=== PATIENT | female | born 1930 | race Caucasian/White ===

== ENCOUNTER 2019-10-26 16:28 | Emergency (ER) | payer MEDICARE ==
[~2019-10-26] VITALS: Ht 160 cm; Wt 54.4 kg
[~2019-10-26 16:28] MED LIST: AMARYL4 MG PO; AMOXIL 875 MG875 M1 PO; ASPIRIN81 M2 PO; BENICAR40 MG PO; BLOOD PRESSURE MED; CRESTOR20 MG PO; GLUCOPHAGE XR500 MG PO; HYDROCHLOROTHIA25 M2 PO; IBUPROFEN 800800 M1 PO; LEVOTHROID88 MCG PO; MACROBID 100 M100 M1 PO; MOBIC15 MG PO; PROTONIX 20 MG20 M1 PO; SYNTHROID88 MCG PO; TYLENOL325 MG PO
[2019-10-26 16:54] LABS: URINE BILIRUBIN NEGATIVE (Negative); URINE BLOOD TRACE (Negative); URINE CLARITY CLEAR; URINE COLOR YELLOW; URINE GLUCOSE-RANDOM NEGATIVE (Negative); URINE KETONES TRACE (Negative); URINE NITRITE-REFLEX NEGATIVE (Negative); URINE PROTEIN NEGATIVE (Negative); URINE UROBILINOGEN 0.2 E.U./dl (0.2-1.0)
[2019-10-26 16:55] LABS: ABSOLUTE BASOPHILS 0.1 thou/uL (0.0-0.2); ABSOLUTE EOSINOPHILS 0.2 thou/uL (0.0-0.7); ABSOLUTE LYMPHOCYTES 1.3 thou/uL (0.8-5.3); ABSOLUTE MONOCYTES 0.4 thou/uL (0.0-1.2); ABSOLUTE NEUTROPHILS 2.9 thou/uL (1.6-8.1); BASOPHILS 1.5 %; EOSINOPHILS 4.2 %; HEMATOCRIT 36.8 % (37.0-47.0); HEMOGLOBIN 12.6 gm/dL (12.0-15.0); LYMPHOCYTES 26.4 %; MCH 30.4 pg (26.0-34.0); MCHC 34.2 g/dL (28.0-37.0); MCV 89.1 fL (80.0-100.0); MONOCYTES 8.4 %; MPV 7.2 fl. (7.2-11.1); NUCLEATED RBCS 0 /100WBC; PLATELET COUNT* 304 thou/uL (150-400); POLYS 59.5 %; RBC 4.13 mil/uL (4.20-5.00); RDW-CV 13.5 % (10.5-14.5); WBC 4.9 thou/uL (4.0-11.0)
[2019-10-26 16:56] LABS: URINE LEUKOCYTES-REFLEX 2+ (Negative)
[2019-10-26 16:57] LABS: BACTERIA-REFLEX 1-9 Few /HPF (None Seen); CRYSTALS None Seen /LPF (None Seen); HYALINE CASTS 0-3 Few /LPF (None Seen); MUCUS None Seen strn/LPF (None Seen); SQUAMOUS 4-10 Moderate /LPF (0-3); URINE RBC 0-2 Rare /HPF (0-2); URINE WBC-REFLEX 6-15 Few /HPF (0-5)
[2019-10-26 17:09] LABS: CALCIUM 8.6 mg/dL (8.5-10.1); CREATININE 1.3 mg/dL (0.6-1.3); POTASSIUM 4.1 mmol/L (3.5-5.1)
[2019-10-26 17:14] LABS: TOTAL BILIRUBIN 0.4 mg/dL (<0.1-1.0); TOTAL PROTEIN 7.6 g/dL (6.4-8.2)
[2019-10-26] MEDS ORDERED: KEFLEX500 M1 PO (17:43)
[2019-10-26 18:09] VITALS: BP 116/71
--- NOTE | 2019-10-27 10:24 | EKG ---
[place] [address] ELECTROCARDIOGRAM REPORT Name: JANIE KNIGHT Room: [facility]#: [id number] Admission: 10/26/19 Attend Phys: Discharge: 10/26/19 Date of : [birth year] Date of Service: 10/26/19 1638 Report #: [id number] THIS REPORT FOR: //name// [facility] ED Test Date: 2019-10-26 Test Time: 16:38:43 Pat Name: JANIE KNIGHT Department: Room: Gender: Geriatric Personal Care Aide: JOSÉ MIGUEL : 1930 Requested By: Char Arteaga Order Number: [id number] MD: Star Loya Measurements Intervals [place] Rate: 62 P: 75 W[place]: 119 QRS: 64 QRSD: 84 T: 71 QT: 404 QTc: 411 Interpretive Statements Sinus rhythm Supraventricular bigeminy Borderline short WV interval Compared to ECG 12/22/2014 20:17:57 Atrial premature complex(es) now present T-wave abnormality no longer present Electronically Signed On 10-27-2019 10:22:30 CDT by Star Loya [email or web address] <ELECTRONICALLY SIGNED> By: Preston Loya MD, [facility] 10/27/19 1022 1638 1638 Preston Loya MD, [facility] /EPI
== END 2019-10-26 18:10 | disposition home or self-care (01) ==
LOC: M.ERS 16:28
PROVIDERS: Physician Assistant
DX: N39.0 Urinary tract infection, site not specified (principal); R53.1 Weakness; E11.9 Type 2 diabetes mellitus without complications; I10 Essential (primary) hypertension; E78.00 Pure hypercholesterolemia, unspecified; E03.9 Hypothyroidism, unspecified; L40.9 Psoriasis, unspecified; Z85.828 Personal history of other malignant neoplasm of skin; Z88.5 Allergy status to narcotic agent

== ENCOUNTER 2019-11-04 15:29 | Inpatient (IN) | payer MEDICARE ==
[~2019-11-04] VITALS: Ht 160 cm; Wt 63.0 kg
[~2019-11-04 15:29] MED LIST changes: +KEFLEX500 M1 PO
[2019-11-04 15:43] VITALS: BP 152/77
[2019-11-04 15:47] LABS: URINE BILIRUBIN NEGATIVE (Negative); URINE BLOOD TRACE (Negative); URINE CLARITY SL CLOUDY; URINE COLOR YELLOW; URINE GLUCOSE-RANDOM NEGATIVE (Negative); URINE KETONES NEGATIVE (Negative); URINE LEUKOCYTES-REFLEX 1+ (Negative); URINE PROTEIN NEGATIVE (Negative); URINE UROBILINOGEN 0.2 E.U./dl (0.2-1.0)
[2019-11-04 15:50] LABS: URINE NITRITE-REFLEX POSITIVE (Negative)
[2019-11-04 16:00] LABS: BACTERIA-REFLEX >30 Many /HPF (None Seen); CASTS None Seen /LPF (None Seen); CRYSTALS None Seen /LPF (None Seen); SQUAMOUS 4-10 Moderate /LPF (0-3); URINE RBC 0-2 Rare /HPF (0-2); URINE WBC-REFLEX 6-15 Few /HPF (0-5)
[2019-11-04 16:19] LABS: ABSOLUTE EOSINOPHILS 0.1 thou/uL (0.0-0.7); ABSOLUTE LYMPHOCYTES 0.9 thou/uL (0.8-5.3); ABSOLUTE MONOCYTES 0.3 thou/uL (0.0-1.2); ABSOLUTE NEUTROPHILS 2.5 thou/uL (1.6-8.1); BASOPHILS 1.1 %; EOSINOPHILS 3.6 %; HEMATOCRIT 36.1 % (37.0-47.0); HEMOGLOBIN 12.2 gm/dL (12.0-15.0); LYMPHOCYTES 23.5 %; MCH 30.2 pg (26.0-34.0); MCHC 33.8 g/dL (28.0-37.0); MCV 89.3 fL (80.0-100.0); MONOCYTES 7.2 %; MPV 7.4 fl. (7.2-11.1); NUCLEATED RBCS 0 /100WBC; PLATELET COUNT* 251 thou/uL (150-400); POLYS 64.6 %; RBC 4.04 mil/uL (4.20-5.00); RDW-CV 13.7 % (10.5-14.5); WBC 3.9 thou/uL (4.0-11.0)
[2019-11-04 16:27] LABS: CALCIUM 8.6 mg/dL (8.5-10.1); CREATININE 1.3 mg/dL (0.6-1.3); POTASSIUM 4.5 mmol/L (3.5-5.1)
[2019-11-04 16:31] LABS: ALBUMIN 3.8 g/dL (3.4-5.0); TOTAL BILIRUBIN 0.5 mg/dL (<0.1-1.0); TOTAL PROTEIN 7.3 g/dL (6.4-8.2)
--- NOTE | 2019-11-04 17:00 | EKG ---
[place] [address] ELECTROCARDIOGRAM REPORT Name: JANIE KNIGHT Room: [facility]#: [id number] Admission: 11/04/19 Attend Phys: Discharge: Date of : [birth year] Date of Service: 11/04/19 1620 Report #: [id number] THIS REPORT FOR: //name// [facility] ED Test Date: 2019-11-04 Test Time: 16:20:18 Pat Name: JANIE KNIGHT Department: Room: Gender: License Issuer: : 1930 Requested By: Kya Zepeda Order Number: [id number] MD: Vazquez Arce Measurements Intervals [place] Rate: 59 P: 84 [place]: 128 QRS: 48 QRSD: 87 T: 50 QT: 434 QTc: 430 Interpretive Statements Sinus rhythm with PACs Compared to ECG 10/26/2019 16:38:43 PACs are less frequent Electronically Signed On 11-04-2019 16:58:38 CDT by Vazquez Arce [email or web address] <ELECTRONICALLY SIGNED> By: Vazquez Arce MD, [facility] 11/04/19 1658 19 19 Vazquez Arce MD, FAC /EPI
[2019-11-04 20:40] VITALS: BP 109/85
[2019-11-04 21:00] VITALS: BP 154/82
[2019-11-04] MEDS ORDERED: LEVOTHYROXINE25 MCG PO (21:33)
[2019-11-04 23:50] VITALS: BP 147/54
[2019-11-05 04:36] LABS: CREATININE 1.1 mg/dL (0.6-1.3); POTASSIUM 3.7 mmol/L (3.5-5.1)
--- NOTE | 2019-11-05 06:16 | NUR ---
PATIENT PROGRESSING TOWARDS GOALS: PATIENT DENIES PAIN AND DISCOMFORT. PT REMAINS INCONTINENT OF URINE, DONNA CARE PROVIDED WITH INCONTINENCE CHECKS. PATIENT UP WITH STANDBY ASSIST TO BATHROOM. MEDICATION (LEVOTHYROXINE) SENT TO PHARMACY TO BE STORED. WALLET WITH CORRALES SENT TO SECURITY TO BE STORED. CALL LIGHT WITHIN REACH.
[2019-11-05 09:36] VITALS: BP 131/88
--- NOTE | 2019-11-05 12:52 | NUR ---
PT OFF UNIT TO U/S.
--- NOTE | 2019-11-05 13:37 | NUR ---
PT RETURN TO ROOM.
--- NOTE | 2019-11-05 15:42 | NUR ---
CM attempted to reach Pt in room, no answer. CM left VM for Pt's son. CM to attempt to assess tomorrow.
[2019-11-05 16:48] VITALS: BP 124/79
--- NOTE | 2019-11-05 18:26 | NUR ---
PT UP TO BATHROOM TO URINATE FREQUENTLY PT REMAINS LARGELY INCONTINENT. PT TAKING IN GOOD PO THIS SHIFT. WILL CONTINUE TO ASSESS.
[2019-11-05 19:40] VITALS: BP 155/75
[2019-11-05 23:21] VITALS: BP 144/67
[2019-11-06 02:07] LABS: GLYCOHEMOGLOBIN (HGB A1C) 5.3 % (4.8-5.6)
[2019-11-06 04:20] LABS: HEMATOCRIT 31.5 % (37.0-47.0); MCH 30.8 pg (26.0-34.0); MCHC 35.1 g/dL (28.0-37.0); MCV 87.8 fL (80.0-100.0); MPV 7.3 fl. (7.2-11.1); RBC 3.58 mil/uL (4.20-5.00); RDW-CV 13.5 % (10.5-14.5)
[2019-11-06 04:47] LABS: CREATININE 1.2 mg/dL (0.6-1.3); MAGNESIUM 1.9 mg/dL (1.8-2.4); POTASSIUM 3.7 mmol/L (3.5-5.1); TOTAL BILIRUBIN 0.3 mg/dL (<0.1-1.0); TOTAL PROTEIN 6.3 g/dL (6.4-8.2)
--- NOTE | 2019-11-06 05:02 | NUR ---
PATIENT PARTIALLY PROGRESSING TOWARDS GOALS: PATIENT STILL INCONTINENT OF URINE THROUGHOUT SHIFT, BUT ABLE TO AMBULATE TO BATHROOM WITH STANDBY ASSIST. INCONTINENCE CHECKS AND DONNA CARE COMPLETED THROUGHOUT NIGHT. PATIENT EAGER TO BE DISCHARGED HOME. CALL LIGHT WITHIN REACH
[2019-11-06 08:00] VITALS: BP 142/72
[2019-11-06 12:22] VITALS: BP 143/68
--- NOTE | 2019-11-06 16:17 | NUR ---
Cm spoke with son via phone. Pt resides at home alone and is independent, Pt continues to drive in town. No DME. No hx of HH or SNF. CM informed son that Pt may be ready to dc to home tomorrow, son states that his mom will not want HH. Pt does not have a PCP, EMELY to provide PCP info prior to dc. Following.
[2019-11-06 19:30] VITALS: BP 139/70
[2019-11-07 05:06] VITALS: BP 148/83
--- NOTE | 2019-11-07 05:09 | NUR ---
PATIENT VERY FORGETFUL AND IMPULSIVE. PATIENT ORIENTED TO SELF AND PLACE. PATIENT REORIENTED MULTIPLE TIMES ON SITUATION. PATIENT PERSISTENTLY ASKING IV TO BE TAKEN OUT, EACH TIME THIS RN REMINDED PATIENT SHE IS RECEIVING IV MEDICATION TO HELP WITH UTI. SHE REMAINS INCONTINENT OF URINE. DONNA CARE PROVIDED. CALL LIGHT WITHIN REACH
--- NOTE | 2019-11-07 07:20 | NUR ---
CHANGE OF SHIFT BEDSIDE REPORT GIVEN PATIENT SEEN AT BEDSIDE, IN BED RESTING ASSUMED PATIENT CARE
[2019-11-07 08:00] VITALS: BP 140/70
[2019-11-07] MEDS ORDERED: FLUCONAZOLE 10100 MG PO (11:18)
[2019-11-07] MEDS ORDERED: CIPRO500 M1 PO (11:18)
[2019-11-07] MEDS ORDERED: FLAGYL500 M1 PO (11:18)
[2019-11-07 11:50] VITALS: BP 140/70
--- NOTE | 2019-11-07 14:05 | NUR ---
PATIENT DISCHARGED TO HOME WITH H/H ALL DISCHARGE INSTRUCTIONS GIVEN, ACKNOWLEDGED, SIGNED PAPERWORK GIVEN IV AND HEART MONITOR REMOVED PERSONAL BELONGINGS RETURNED UROLOGY CONTACTED TO SETUP APPOINTMENT AND AWAITING CALL BACK SPOKE WITH SON CONOR AND WILL DISCHARGE PATIENT AND AWAIT CALL FOR APPOINTMENT PATIENT ASSISTED OUT VIA WC [facility]
== END 2019-11-07 14:10 | disposition home health service (06) | DRG 690 ==
LOC: M.ERS 15:29 → M.2W 17:15 → M.TBA-ER 17:15 → M.2W 20:16
PROVIDERS: Internal Medicine; Nurse Practitioner Family; ADMIT Internal Medicine
DX: N30.00 Acute cystitis without hematuria (principal); T19.2XXA Foreign body in vulva and vagina, initial encounter; E11.9 Type 2 diabetes mellitus without complications; I10 Essential (primary) hypertension; E78.00 Pure hypercholesterolemia, unspecified; E03.9 Hypothyroidism, unspecified; Z88.6 Allergy status to analgesic agent; Z79.899 Other long term (current) drug therapy; X58.XXXA Exposure to other specified factors, initial encounter; Y93.89 Activity, other specified; Y92.89 Other specified places as the place of occurrence of the external cause; Y99.8 Other external cause status; Z66 Do not resuscitate; W18.2XXA Fall in (into) shower or empty bathtub, initial encounter

== ENCOUNTER 2019-11-20 18:24 | Emergency (ER) | payer MEDICARE ==
[~2019-11-20] VITALS: Ht 160 cm; Wt 59.0 kg
[~2019-11-20 18:24] MED LIST changes: +CIPRO500 M1 PO; +FLAGYL500 M1 PO; +FLUCONAZOLE 10100 MG PO; +LEVOTHYROXINE25 MCG PO
[2019-11-20 19:56] LABS: ABSOLUTE EOSINOPHILS 0.1 thou/uL (0.0-0.7); ABSOLUTE LYMPHOCYTES 0.8 thou/uL (0.8-5.3); ABSOLUTE MONOCYTES 0.3 thou/uL (0.0-1.2); ABSOLUTE NEUTROPHILS 2.7 thou/uL (1.6-8.1); EOSINOPHILS 3.2 %; HEMATOCRIT 32.8 % (37.0-47.0); HEMOGLOBIN 11.4 gm/dL (12.0-15.0); LYMPHOCYTES 19.3 %; MCHC 34.7 g/dL (28.0-37.0); MCV 89.5 fL (80.0-100.0); MONOCYTES 7.7 %; MPV 7.8 fl. (7.2-11.1); NUCLEATED RBCS 0 /100WBC; PLATELET COUNT* 285 thou/uL (150-400); POLYS 68.8 %; RBC 3.67 mil/uL (4.20-5.00); RDW-CV 13.4 % (10.5-14.5); WBC 3.9 thou/uL (4.0-11.0)
[2019-11-20 20:04] LABS: CALCIUM 8.5 mg/dL (8.5-10.1); CREATININE 1.2 mg/dL (0.6-1.3); POTASSIUM 4.1 mmol/L (3.5-5.1)
[2019-11-20 20:09] LABS: ALBUMIN 3.5 g/dL (3.4-5.0); TOTAL BILIRUBIN 0.5 mg/dL (<0.1-1.0)
[2019-11-20 20:39] LABS: URINE BILIRUBIN NEGATIVE (Negative); URINE BLOOD NEGATIVE (Negative); URINE CLARITY CLEAR; URINE COLOR YELLOW; URINE GLUCOSE-RANDOM NEGATIVE (Negative); URINE KETONES NEGATIVE (Negative); URINE LEUKOCYTES-REFLEX NEGATIVE (Negative); URINE NITRITE-REFLEX NEGATIVE (Negative); URINE PROTEIN NEGATIVE (Negative); URINE SPECIFIC GRAVITY <= 1.005 (1.005-1.030); URINE UROBILINOGEN 0.2 E.U./dl (0.2-1.0)
[2019-11-20 21:30] VITALS: BP 122/79
--- NOTE | 2019-11-21 12:56 | EKG ---
[place] [address] ELECTROCARDIOGRAM REPORT Name: JANIE KNIGHT Room: [facility]#: [id number] Admission: 11/20/19 Attend Phys: Discharge: 11/20/19 Date of : [birth year] Date of Service: 11/20/19 [facility] Report #: [id number] THIS REPORT FOR: //name// [facility] ED Test Date: 2019-11-20 Test Time: 19:50:27 Pat Name: JANIE KNIGHT Department: Room: Gender: Bottle And Glass Inspector: [id number] : 1930 Requested By: Velma Orellana Order Number: [id number] MD: Ross Blue Measurements Intervals [place] Rate: 96 P: 23 GA: 151 QRS: 37 QRSD: 84 T: 39 QT: 402 QTc: 508 Interpretive Statements Sinus rhythm with frequent and consecutive premature atrial contractions Prolonged QT interval Baseline wander in lead(s) V2 Compared to ECG 11/04/2019 16:20:18 Prolonged QT interval now present Sinus rhythm no longer present Electronically Signed On 11-21-2019 12:54:28 CDT by Ross Blue [email or web address] <ELECTRONICALLY SIGNED> By: Ross Blue MD, FACC 11/21/19 1254 1950 1950 Ross Blue MD, FACC /EPI
== END 2019-11-20 21:31 | disposition home or self-care (01) ==
LOC: M.ERS 18:24
PROVIDERS: Family Medicine; Personal Emergency Response Attendant
DX: R32 Unspecified urinary incontinence (principal); I10 Essential (primary) hypertension; E11.9 Type 2 diabetes mellitus without complications; E78.00 Pure hypercholesterolemia, unspecified; E03.9 Hypothyroidism, unspecified; Z85.828 Personal history of other malignant neoplasm of skin; Z88.6 Allergy status to analgesic agent

== ENCOUNTER 2019-12-08 19:50 | Inpatient (IN) | payer MEDICARE ==
[~2019-12-08] VITALS: Ht 160 cm; Wt 59.6 kg
[2019-12-08 19:59] VITALS: BP 131/83
[2019-12-08 20:17] LABS: HEMATOCRIT 39.2 % (37.0-47.0); HEMOGLOBIN 13.4 gm/dL (12.0-15.0); MCH 30.6 pg (26.0-34.0); MCHC 34.2 g/dL (28.0-37.0); MCV 89.4 fL (80.0-100.0); MPV 8.1 fl. (7.2-11.1); NUCLEATED RBCS 0 /100WBC; PLATELET COUNT* 364 thou/uL (150-400); RBC 4.38 mil/uL (4.20-5.00); RDW-CV 13.8 % (10.5-14.5); WBC 8.8 thou/uL (4.0-11.0)
[2019-12-08 20:24] LABS: CALCIUM 8.7 mg/dL (8.5-10.1); CREATININE 2.1 mg/dL (0.6-1.3); POTASSIUM 4.6 mmol/L (3.5-5.1)
[2019-12-08 20:34] LABS: ALBUMIN 3.9 g/dL (3.4-5.0); INR 1.1; MAGNESIUM 2.1 mg/dL (1.8-2.4); PROTIME 11.4 Seconds (9.20-11.50); TOTAL BILIRUBIN 0.5 mg/dL (<0.1-1.0); TOTAL PROTEIN 8.2 g/dL (6.4-8.2)
[2019-12-08 20:46] LABS: ABSOLUTE EOSINOPHILS 0.1 thou/uL (0.0-0.7); ABSOLUTE MONOCYTES 0.3 thou/uL (0.0-1.2); ABSOLUTE NEUTROPHILS 7.5 thou/uL (1.6-8.1); LARGE PLATELETS OCCASIONAL
[2019-12-08 20:47] LABS: PLATELET ESTIMATE ADEQUATE
[2019-12-08 23:00] VITALS: BP 121/66
[2019-12-08 23:09] VITALS: BP 117/70
[2019-12-09 00:10] LABS: URINE BILIRUBIN NEGATIVE (Negative); URINE BLOOD 1+ (Negative); URINE CLARITY CLEAR; URINE COLOR YELLOW; URINE GLUCOSE-RANDOM NEGATIVE (Negative); URINE KETONES NEGATIVE (Negative); URINE NITRITE-REFLEX NEGATIVE (Negative); URINE PROTEIN NEGATIVE (Negative)
[2019-12-09 00:11] LABS: URINE LEUKOCYTES-REFLEX 2+ (Negative)
[2019-12-09 00:29] LABS: BACTERIA-REFLEX >30 Many /HPF (None Seen); COARSE GRANULAR CASTS 0-3 Few /LPF (None Seen); CRYSTALS None Seen /LPF (None Seen); FINE GRANULAR CASTS 0-3 Few /LPF (None Seen); MUCUS 4-6 Moderate strn/LPF (None Seen); SQUAMOUS 4-10 Moderate /LPF (0-3); TRANSITIONAL EPITHEL CELL 0-3 Few /LPF (None Seen); URINE RBC 3-10 Few /HPF (0-2); URINE WBC-REFLEX 6-15 Few /HPF (0-5)
[2019-12-09 05:17] VITALS: BP 141/65
[2019-12-09 08:00] VITALS: BP 122/71
--- NOTE | 2019-12-09 08:58 | EKG ---
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: DANIEL : 1930 Requested By: Felicitas Cline Order Number: [id number] MD: Jake Olsen Measurements Intervals [place] Rate: 160 P: 266 [place]: 79 QRS: 44 QRSD: 91 T: 243 QT: 197 QTc: 322 Interpretive Statements Supraventricular tachycardia Repolarization abnormality, prob rate related Compared to ECG 11/20/2019 19:50:27 Sinus rhythm no longer present Electronically Signed On 12-09-2019 8:56:45 CDT by Jake Olsen [email or web address] <ELECTRONICALLY SIGNED> By: Jake Olsen MD, FAC 12/09/19 0856 58 58 Jake Olsen MD, [facility] /EPI
[2019-12-09 09:53] LABS: CALCIUM 8.1 mg/dL (8.5-10.1); CREATININE 1.4 mg/dL (0.6-1.3)
[2019-12-09 12:20] VITALS: BP 134/64
--- NOTE | 2019-12-09 13:43 | 2DMMODE ---
[place] [address] 2 D/M-MODE ECHOCARDIOGRAM Name: JANIE KNIGHT Room: [address] IN .[place].#: [id number] Admission: 12/08/19 Attend Phys: Vanessa Vazquez, Discharge: Date of : [birth year] Date of Service: 12/09/19 1341 Report #: [id number] THIS REPORT FOR: cc: FAM - No family physician/PCP FAM - No family physician/PCP Jake Olsen MD [facility] ~ APPROVED REPORT Study performed: 12/09/2019 10:20:40 EXAM: Comprehensive 2D, Doppler, and color-flow Echocardiogram Patient Location: In-Patient Room #: [facility] BSA: 1.53 HR: 81 bpm BP: 141/65 mmHg Other Information Study Quality: Good Indications Atrial Fibrillation 2D Dimensions IVSd: 11.09 (7-11mm) LVOT Diam: 19.10 (18-24mm) LVDd: 39.84 mm PWd: 10.73 (7-11mm) Ascending Ao: 28.28 (22-36mm) LVDs: 24.06 (25-40mm) Aortic Root: 24.97 mm Volumes Left Atrial Volume (Systole) LA ESV Index: 25.90 mL/m2 Aortic Valve AoV Peak Declan.: 1.25 m/s AO Peak Gr.: 6.22 mmHg LVOT Max P.24 mmHg AO Mean Gr.: 3.20 mmHg LVOT Mean P.26 mmHg LVOT Max V: 0.90 m/s AO V2 VTI: 25.09 cm LVOT Mean V: 0.50 m/s HUSSEIN (VTI): 2.04 cm2 LVOT V1 VTI: 17.[place] [address] 2 D/M-MODE ECHOCARDIOGRAM Name: JANIE KNIGHT Room: [address] IN M.R.#: [id number] Admission: 12/08/19 Attend Phys: Vanessa Vazquez, Discharge: Date of : [birth year] Date of Service: 12/09/19 1341 Report #: [id number] Medial E' Declan.: 0.11 m/s Lateral E' Declan.: 0.10 m/s Pulmonary Valve PV Peak Declan.: 0.80 m/s PV Peak Gr.: 2.56 mmHg Tricuspid Valve RAP Estimate: 5.00 mmHg TR Peak Gr.: 34.23 mmHg RVSP: 39.23 mmHg PA Pressure: 39.23 mmHg Left Ventricle The left ventricle is normal size. There is normal LV segmental wall motion. There is normal left ventricular wall thickness. Left ventricular systolic function is normal. The left ventricular ejection fraction is within the normal range. LVEF is 55-60%. This study is not technically sufficient to allow evaluation of the LV diastolic function due to atrial fibrillation. Right Ventricle The right ventricle is normal size. The right ventricular systolic function is normal. Atria The left atrium size is normal. The right atrium size is normal. Aortic Valve Mild aortic valve sclerosis. No aortic regurgitation is present. There is no aortic valvular stenosis. Mitral Valve Mild mitral annular calcification. Mild mitral regurgitation. No evidence of mitral valve stenosis. Tricuspid Valve The tricuspid valve is normal in structure. Mild tricuspid regurgitation. estimated pa pressure 45 mm Hg Pulmonic Valve Pulmonic valve is not well visualized. Mild pulmonic regurgitation. Great Vessels The aortic root is normal in size. IVC is normal in size and collapses >50% [place] [address] 2 D/M-MODE ECHOCARDIOGRAM Name: JANIE KNIGHT Room: [address]#: [id number] Admission: 12/08/19 Attend Phys: Vanessa Vazquez, Discharge: Date of : [birth year] Date of Service: 12/09/19 1341 Report #: [id number] Pericardium There is no pericardial effusion. <Conclusion> LVEF is 55-60%. Mild aortic valve sclerosis. Mild mitral regurgitation. Mild tricuspid regurgitation. estimated pa pressure 45 mm Hg <ELECTRONICALLY SIGNED> By: Jake Olsen MD, FAC 12/09/19 1341 40 40 Jake Olsen MD, [facility] /INF
--- NOTE | 2019-12-09 14:34 | EKG ---
[place] [address] ELECTROCARDIOGRAM REPORT Name: JANIE KNIGHT Room: [address] ADM IN M.R.#: [id number] Admission: 12/08/19 Attend Phys: Vanessa Vazquez, Discharge: Date of : [birth year] Date of Service: 12/08/192035 Report #: [id number] THIS REPORT FOR: //name// [facility] ED Test Date: 2019-12-08 Test Time: 20:36:48 Pat Name: JANIE KNIGHT Department: Room: [address] Gender: F Record Tester: SOLO : 1930 Requested By: Felicitas Cline Order Number: [id number] Rosa Isela MD: Jake Olsen Measurements Intervals [place] Rate: 155 P: -78 [place]: 91 QRS: 47 QRSD: 113 T: QT: 248 QTc: 399 Interpretive Statements Supraventricular tachycardia Borderline intraventricular conduction delay Abnormal R-wave progression, early transition Repolarization abnormality, prob rate related Baseline wander in lead(s) V1 Compared to ECG 12/08/2019 19:59:44 No significant changes Electronically Signed On 12-09-2019 14:32:24 CDT by Jake Olsen [email or web address] <ELECTRONICALLY SIGNED> By: Jake Olsen MD, FACC 12/09/19 1432 35 35 Jake Olsen MD, [facility] /EPI
--- NOTE | 2019-12-09 14:35 | EKG ---
[place] [address] ELECTROCARDIOGRAM REPORT Name: JANIE KNIGHT Room: [address] ADM IN M.R.#: [id number] Admission: 12/08/19 Attend Phys: Vanessa Vazquez, Discharge: Date of : [birth year] Date of Service: 12/08/192117 Report #: [id number] THIS REPORT FOR: //name// [facility] ED Test Date: 2019-12-08 Test Time: 21:18:28 Pat Name: JANIE KNIGHT Department: Room: [address] Gender: F Media Relations Coordinator: SOLO : 1930 Requested By: Felicitas Cline Order Number: [id number] Rosa Isela MD: Jake Olsen Measurements Intervals [place] Rate: 147 P: SD: QRS: 42 QRSD: 82 T: 118 QT: 302 QTc: 473 Interpretive Statements Atrial fibrillation with rapid V-rate Low voltage, extremity and precordial leads Abnormal R-wave progression, early transition Borderline T abnormalities, lateral leads Baseline wander in lead(s) V1 Compared to ECG 12/08/2019 19:59:44 Low QRS voltage now present atrial fibrillation no noted Electronically Signed On 12-09-2019 14:33:22 CDT by Jake Olsen [email or web address] <ELECTRONICALLY SIGNED> By: Jake Olsen MD, [facility] 12/09/19 1433 17 17 Jake Olsen MD, [facility] /EPI
--- NOTE | 2019-12-09 14:36 | EKG ---
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: SOLO : 1930 Requested By: Felicitas Cline Order Number: [id number] Rosa Isela MD: Jake Olsen Measurements Intervals [place] Rate: 57 P: 41 SC: 149 QRS: -40 QRSD: 105 T: 84 QT: 431 QTc: 420 Interpretive Statements Sinus rhythm with pac Left axis deviation Baseline wander in lead(s) V1 Compared to ECG 12/08/2019 19:59:44 Left-axis deviation now present Supraventricular tachycardia no longer present Electronically Signed On 12-09-2019 14:34:00 CDT by Jake Olsen [email or web address] <ELECTRONICALLY SIGNED> By: Jake Olsen MD, FAC 12/09/19 1434 29 29 Jake Olsen MD, FAC /EPI
[2019-12-09 16:00] VITALS: BP 136/62
--- NOTE | 2019-12-09 16:57 | CON ---
[address] [address] CONSULTATION Name: JANIE KNIGHT Room: [address] ADM IN M.R.#: [id number] Admission: 12/08/19 Attend Phys: Vanessa Vazquez MD Discharge: Date of : [birth year] Report #: [id number] THIS REPORT FOR: //name// cc: AGNIESZKA Godoy No family physician/PCP AGNIESZKA - No family physician/PCP ~ THIS REPORT FOR: //name// CC: Karen Goss, Nurse Practitioner [facility] physician/PCP Vanessa Vazquez DATE OF SERVICE: 12/09/2019 CARDIOLOGY CONSULTATION HISTORY OF PRESENT ILLNESS: The patient is an 89-year-old single white female who I was asked to see in the hospital today after she had a narrow complex tachycardia. The patient is followed by my partner, Dr. Loya. The history is obtained from some old records as well as the current chart. The patient is very hard of hearing, and difficult to communicate with. There are no family members available. The patient has a long history of palpitations. She has been on Toprol. Dr. Loya last saw the patient last May. He recommended continuing Toprol. The patient had an event recorder in June that showed sinus rhythm. No episodes of atrial fibrillation was noted. She did have a short run of supraventricular tachycardia with frequent PACs and PVCs. She apparently had an echocardiogram at an outside institution. The patient is not very active because of her advanced age. She lives by herself, however. She states that yesterday she did not feel well. She felt weak. Denied any shortness of breath, fever or cough. She denied any palpitations. She has had no recent syncope. When she arrived in the Emergency Room, ECG showed atrial fibrillation, rapid ventricular response rate. She was placed on intravenous diltiazem and converted to sinus rhythm. I was asked to see her for further evaluation and treatment. PAST MEDICAL HISTORY: Otherwise significant for no major surgical procedures. She does have a history of hypertension. CURRENT MEDICATIONS: Include only aspirin, metoprolol, Synthroid. FAMILY HISTORY: Negative for heart disease. SOCIAL HISTORY: She is , lives in [place], [place] by herself. Quit smoking years ago, rarely drinks alcohol. REVIEW OF SYSTEMS: No history of stroke, asthma, peptic ulcer disease, liver disease, kidney disease, cancer, chronic skin condition[place] [address] CONSULTATION Name: JANIE KNIGHT Room: [address]#: [id number] Admission: 12/08/19 Attend Phys: Vanessa Vazquez MD Discharge: Date of : [birth year] Report #: [id number] PHYSICAL EXAMINATION: GENERAL: Revealed an elderly frail appearing female, lying in bed. She appeared in no distress. CURRENT VITAL SIGNS: She had a blood pressure of 120/70, pulse 70. She is afebrile. HEENT: She was anicteric. Conjunctivae pink. Mucous membranes appear dry. NECK: Veins are nondistended. CHEST: Clear to auscultation. CARDIOVASCULAR: Regular rate and rhythm, grade 2 systolic ejection murmur. ABDOMEN: Soft. EXTREMITIES: Had no edema. SKIN: Cool and dry. NEUROLOGIC: Nonfocal. DIAGNOSTIC STUDIES: Her ECG when she arrived showed atrial fibrillation with rapid ventricular response rate. Her current ECG on the monitor shows that she is now in a sinus rhythm with no significant ST or T-wave change. Workup last night, she had a portable chest x-ray that showed normal heart size and clear lung jules. She had a CT scan of the chest without contrast last night that showed no acute abnormality. LABORATORY WORK: Sodium 141, potassium 4.0, BUN 30, creatinine 1.4, it has been as high as 2.7 in the past. Her liver function studies were normal. Troponin 0.06. BNP 14,153. TSH 8.4. In October, her T4 was 0.9. Her white blood cell count 8.8, hemoglobin 13.4. IMPRESSION AND RECOMMENDATIONS: 1. Atrial fibrillation. No clinical recurrences in the past. She has a history of supraventricular tachycardia. I would recommend switching from metoprolol to sotalol. Because of her advanced age, I would consider anticoagulation with Eliquis, I would decrease the dose to 2.5 mg every 12 hours because of her history of chronic kidney disease and advanced age. 2. Hypertension. The patient has been on a beta primitivo. 3. Chronic kidney disease. <ELECTRONICALLY SIGNED> By: Jake Olsen MD, [facility] 12/09/19 1657 1128 [id number] Olsen MD, [facility] /nt
[2019-12-09 20:00] VITALS: BP 133/73
[2019-12-10] VITALS: BP 155/66
[2019-12-10 02:07] LABS: GLYCOHEMOGLOBIN (HGB A1C) 5.3 % (4.8-5.6)
[2019-12-10 04:00] VITALS: BP 162/85
[2019-12-10 08:00] VITALS: BP 149/83
[2019-12-10 11:30] VITALS: BP 153/96
--- NOTE | 2019-12-10 13:31 | EKG ---
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 /EPI
[2019-12-10 16:00] VITALS: BP 131/67
[2019-12-10 20:00] VITALS: BP 152/74
[2019-12-11] VITALS: BP 148/75
[2019-12-11 04:00] VITALS: BP 156/72
[2019-12-11 05:24] LABS: CALCIUM 8.2 mg/dL (8.5-10.1); MAGNESIUM 1.6 mg/dL (1.8-2.4); POTASSIUM 3.2 mmol/L (3.5-5.1)
[2019-12-11 08:00] VITALS: BP 150/72
--- NOTE | 2019-12-11 12:24 | EKG ---
[place] [address] ELECTROCARDIOGRAM REPORT Name: EMMY KNIGHTINE Room: [address] ADM IN .R.#: [id number] Admission: 12/08/19 Attend Phys: Vanessa Vazquez, Discharge: Date of : [birth year] Date of Service: 12/11/19 1153 Report #: [id number] THIS REPORT FOR: //name// [facility] Test Date: 2019-12-11 Test Time: 11:53:39 Pat Name: JANIE KNIGHT Department: Room: [address] Gender: F Brick Paver: : 1930 Requested By: Jake Olsen Order Number: [id number] Rosa Isela MD: Jake Olsen Measurements Intervals [employer] Rate: 49 P: 52 PA: 130 QRS: 27 QRSD: 94 T: 41 QT: 491 QTc: 444 Interpretive Statements Sinus bradycardia Supraventricular bigeminy Compared to ECG 12/10/2019 08:07:58 No significant changes Electronically Signed On 12-11-2019 12:22:30 CDT by Jake Olsen [email or web address] <ELECTRONICALLY SIGNED> By: Jake Olsen MD, [facility] 12/11/19 1222 1153 1153 Jake Olsen MD, [facility] /EPI
[2019-12-11 16:52] VITALS: BP 156/74
[2019-12-11 20:20] VITALS: BP 169/77
[2019-12-12 00:45] VITALS: BP 169/75
[2019-12-12 05:13] VITALS: BP 166/75
[2019-12-12 08:00] VITALS: BP 171/69
[2019-12-12] MEDS ORDERED: ELIQUIS2.5 MG PO (11:25)
[2019-12-12] MEDS ORDERED: SORINE 80 MG TA80 MG PO (11:27)
[2019-12-12 11:28] VITALS: BP 171/69
== END 2019-12-12 14:14 | DRG 682 ==
LOC: M.ERS 19:50 → M.2W 22:29 → M.TBA-ER 22:29 → M.2W 22:37
PROVIDERS: Emergency Medicine; Internal Medicine; ADMIT Internal Medicine
DX: N17.0 Acute kidney failure with tubular necrosis (principal); R65.11 Systemic inflammatory response syndrome (SIRS) of non-infectious origin with acute organ dysfunction; N39.0 Urinary tract infection, site not specified; N82.0 Vesicovaginal fistula; I48.91 Unspecified atrial fibrillation; E78.00 Pure hypercholesterolemia, unspecified; E03.9 Hypothyroidism, unspecified; Z88.6 Allergy status to analgesic agent; E78.2 Mixed hyperlipidemia; N18.9 Chronic kidney disease, unspecified; Z66 Do not resuscitate; I25.10 Atherosclerotic heart disease of native coronary artery without angina pectoris; I12.9 Hypertensive chronic kidney disease with stage 1 through stage 4 chronic kidney disease, or unspecified chronic kidney disease; E11.22 Type 2 diabetes mellitus with diabetic chronic kidney disease; Z79.899 Other long term (current) drug therapy

== ENCOUNTER 2019-12-15 16:57 | Inpatient (IN) | payer MEDICARE ==
[~2019-12-15] VITALS: Ht 160 cm; Wt 53.6 kg
[~2019-12-15 16:57] MED LIST changes: +ELIQUIS2.5 MG PO; +SORINE 80 MG TA80 MG PO
[2019-12-15 17:06] VITALS: BP 107/65
[2019-12-15 17:41] LABS: ABSOLUTE EOSINOPHILS 0.2 thou/uL (0.0-0.7); ABSOLUTE LYMPHOCYTES 1.3 thou/uL (0.8-5.3); ABSOLUTE MONOCYTES 0.4 thou/uL (0.0-1.2); BASOPHILS 0.6 %; EOSINOPHILS 3.5 %; HEMATOCRIT 36.7 % (37.0-47.0); HEMOGLOBIN 12.5 gm/dL (12.0-15.0); LYMPHOCYTES 25.7 %; MCH 29.8 pg (26.0-34.0); MCV 87.4 fL (80.0-100.0); MPV 7.9 fl. (7.2-11.1); NUCLEATED RBCS 0 /100WBC; PLATELET COUNT* 358 thou/uL (150-400); POLYS 62.2 %; RDW-CV 13.5 % (10.5-14.5); WBC 4.9 thou/uL (4.0-11.0)
[2019-12-15 17:50] LABS: INR 1.1; PROTIME 11.1 Seconds (9.20-11.50)
[2019-12-15 17:52] LABS: CALCIUM 8.8 mg/dL (8.5-10.1); CREATININE 1.4 mg/dL (0.6-1.3); POTASSIUM 4.5 mmol/L (3.5-5.1)
[2019-12-15 18:03] LABS: ALBUMIN 3.4 g/dL (3.4-5.0); TOTAL BILIRUBIN 0.5 mg/dL (<0.1-1.0); TOTAL PROTEIN 7.2 g/dL (6.4-8.2)
[2019-12-15 20:22] VITALS: BP 142/75
[2019-12-15 21:30] VITALS: BP 107/63
--- NOTE | 2019-12-15 21:30 | NUR ---
RECEIVED REPORT FROM ER AND TO ROOM AT 2044. ASSESSMENT COMPLETED AT THIS TIME. TELEMETRY APPLIED SHOWING RATE 130-140'S. O2 SAT 96% ON RA. PRANAY LOWER LEGS WITH 2+ EDEMA. PT HAVING INCONT AND FREQ OF URINE, WEARING BRIEFS. OLD SKIN TEAR NOTED TO RT ELBOW. SEE ADMISSION HX AND ASSESSMENT. WILL CONT TO MONITOR AND ASSIST NEEDED.
[2019-12-16] VITALS: BP 101/59
[2019-12-16 04:00] VITALS: BP 113/80
--- NOTE | 2019-12-16 06:29 | NUR ---
SLEPT WELL TONIGHT. ASSISTED TO BR AND BACK, GAIT UNSTEADY. TELEMETRY CONT TO SHOW SR 60'S TO ST 130'S. NO COMPLAINTS VOICED. HS GOALS OF REST AND SAFETY ACHIEVED. HOURLY ROUNDING OBSERVED.
[2019-12-16 07:01] LABS: ABSOLUTE BASOPHILS 0.1 thou/uL (0.0-0.2); ABSOLUTE EOSINOPHILS 0.2 thou/uL (0.0-0.7); ABSOLUTE LYMPHOCYTES 1.4 thou/uL (0.8-5.3); ABSOLUTE MONOCYTES 0.4 thou/uL (0.0-1.2); ABSOLUTE NEUTROPHILS 1.7 thou/uL (1.6-8.1); BASOPHILS 1.3 %; EOSINOPHILS 6.2 %; HEMATOCRIT 33.7 % (37.0-47.0); HEMOGLOBIN 11.7 gm/dL (12.0-15.0); LYMPHOCYTES 37.6 %; MCH 30.2 pg (26.0-34.0); MCHC 34.6 g/dL (28.0-37.0); MCV 87.3 fL (80.0-100.0); MONOCYTES 10.1 %; MPV 7.4 fl. (7.2-11.1); NUCLEATED RBCS 0 /100WBC; PLATELET COUNT* 284 thou/uL (150-400); POLYS 44.8 %; RBC 3.86 mil/uL (4.20-5.00); RDW-CV 13.4 % (10.5-14.5); WBC 3.8 thou/uL (4.0-11.0)
[2019-12-16 07:15] LABS: CALCIUM 8.2 mg/dL (8.5-10.1); CREATININE 1.3 mg/dL (0.6-1.3); POTASSIUM 4.3 mmol/L (3.5-5.1)
[2019-12-16 08:00] VITALS: BP 136/93
[2019-12-16 11:18] VITALS: BP 123/84
--- NOTE | 2019-12-16 12:58 | NUR ---
PT HAS BEEN RESTING T/O SHIFT WITHOUT COMPLAINTS. RESUMED DIET. HR IS NOW BELOW 100S. PT LIVES AT HOME ALONE. WILL CONSULT CM.
--- NOTE | 2019-12-16 13:36 | NUR ---
Pt is A&O. Dc to [facility] at [place] last week, upon arrival to [facility], Pt left AMA. Today Pt stated "I didn't want to stay there." Pt resides at home alone. Independent. No DME. No hx of HH. Son is supportive. Pt states that her goal is to return home at dc, no needs.
--- NOTE | 2019-12-16 15:45 | EKG ---
[place] [address] ELECTROCARDIOGRAM REPORT Name: JANIE KNIGHT Room: [address] ADM IN ..#: [id number] Admission: 12/16/19 Attend Phys: Anupam Cardenas, Discharge: Date of : [birth year] Date of Service: 12/15/19 1702 Report #: [id number] THIS REPORT FOR: //name// [facility] ED Test Date: 2019-12-15 Test Time: 17:02:58 Pat Name: JANIE KNIGHT Department: Room: [facility] Gender: F Education Trainer: LONA : 1930 Requested By: Velma Orellana Order Number: [id number] MD: Vazquez Arce Measurements Intervals [place] Rate: 147 P: 72 [place]: 113 QRS: 25 QRSD: 72 T: 160 QT: 251 QTc: 393 Interpretive Statements Supraventricular tachycardia Repolarization abnormality, prob rate related Baseline wander in lead(s) V6 Compared to ECG 12/11/2019 11:53:39 Early repolarization now present Sinus bradycardia no longer present Atrial premature complex(es) no longer present Electronically Signed On 12-16-2019 15:43:25 CDT by Vazquez Arce [email or web address] <ELECTRONICALLY SIGNED> By: Vazquez Arce MD, [facility] 12/16/19 1543 170 170 Vazquez Arce MD, [facility] /EPI
[2019-12-16 16:12] VITALS: BP 129/64
[2019-12-16 19:35] VITALS: BP 155/76
[2019-12-17] VITALS (7 sets, daily range): BP systolic 127–183; BP diastolic 53–86
--- NOTE | 2019-12-17 05:41 | NUR ---
ASSUMED CARE OF PT AT 1900. PT IS ALERT AND ORIENTED X 3. PERRLA. NO COMPLAINTS OF PAIN. UP WITH 1 ASSIST. PT IS IN SINUS RYTHM ON THE TELEMETRY. PT IS RESTING COMFORTABLY IN BED. RESPIRATIONS ARE EVEN AND NONLABORED. WILL CONTINUE TO MONITOR PT.
--- NOTE | 2019-12-17 05:50 | NUR ---
ASSUMED CARE OF PT AT 1900. PT IS ALERT AND ORIENTED X 3. PERRLA. NO COMPLAINTS OF PAIN. PT IS IN SINUS RYTHM ON THE TELEMETRY. PT IS RESTING COMFORTABLY IN BED. RESPIRATIONS ARE EVEN AND NONLABORED. WILL CONTINUE TO MONITOR PT.
--- NOTE | 2019-12-17 08:15 | NUR ---
ASSUMED PT. CARE AND RECEIVED REPORT AT 0730. PT A/OX TO SELF/PLACE, SOME NOTED CONFUSION. PT. DENIES CURRENT PAIN/SOB. ON RA. FULL ASSESSMENT COMPLETED, REFER TO CHARTING. BP ELEVATED THIS MORNING 180'S/80'S BILATERALLY. TREATED WITH A.M MEDS. CALL LIGHT IN REACH, FALL PRECAUTIONS IN PLACE. WILL CONTINUE WITH PLAN OF CARE.
--- NOTE | 2019-12-17 12:53 | NUR ---
Per , cardiology adjusting meds. Anticipate dc to home tomorrow with HH.
--- NOTE | 2019-12-17 15:29 | EKG ---
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: : 1930 Requested By: Jeanne Monson Order Number: [id number] Rosa Isela MD: Ross Blue Measurements Intervals [place] Rate: 58 P: 12 VT: 128 QRS: 15 QRSD: 96 T: 56 QT: 497 QTc: 489 Interpretive Statements Sinus rhythm Nonspecific T abnrm, anterolateral leads Borderline prolonged QT interval Compared to ECG 12/15/2019 17:02:58 Supraventricular tachycardia no longer present Early repolarization no longer present Electronically Signed On 12-17-2019 15:28:22 CDT by Ross Blue [email or web address] <ELECTRONICALLY SIGNED> By: Ross Blue MD, [facility] 12/17/19 1528 2 2 Ross Blue MD, [facility] /EPI
--- NOTE | 2019-12-17 16:00 | NUR ---
SPOKE WITH PT. SON CONOR VIA PHONE. UPDATED ON POSSIBLE DC TOMORROW AND PT. NEED TO HAVE HELP WITH MEDICATIONS AT HOME. STATED UNDERSTANDING.
[2019-12-18] VITALS: BP 137/60
--- NOTE | 2019-12-18 03:05 | NUR ---
ASSUMED CARE OF PT AT 1900. PT IS ALERT AND ORIENTED. VSS. NO COMPLAINTS OF PAIN. PT IS IN SINUS RYTHM ON THE TELEMETRY. PT IS RESTING COMFORTABLY IN BED. RESPIRATIONS ARE EVEN AND NONLABORED. WILL CONTINUE TO MONITOR PT.
[2019-12-18 03:52] VITALS: BP 152/84
[2019-12-18 06:27] LABS: ABSOLUTE EOSINOPHILS 0.3 thou/uL (0.0-0.7); ABSOLUTE LYMPHOCYTES 1.4 thou/uL (0.8-5.3); ABSOLUTE MONOCYTES 0.4 thou/uL (0.0-1.2); ABSOLUTE NEUTROPHILS 2.6 thou/uL (1.6-8.1); BASOPHILS 0.2 %; EOSINOPHILS 5.8 %; HEMATOCRIT 36.1 % (37.0-47.0); HEMOGLOBIN 12.3 gm/dL (12.0-15.0); LYMPHOCYTES 30.2 %; MCH 29.8 pg (26.0-34.0); MCHC 34.1 g/dL (28.0-37.0); MCV 87.4 fL (80.0-100.0); MONOCYTES 8.3 %; MPV 7.8 fl. (7.2-11.1); NUCLEATED RBCS 0 /100WBC; PLATELET COUNT* 318 thou/uL (150-400); POLYS 55.5 %; RBC 4.14 mil/uL (4.20-5.00); RDW-CV 13.2 % (10.5-14.5); WBC 4.7 thou/uL (4.0-11.0)
[2019-12-18 06:30] LABS: CALCIUM 8.5 mg/dL (8.5-10.1); POTASSIUM 3.6 mmol/L (3.5-5.1)
[2019-12-18 08:00] VITALS: BP 161/79
--- NOTE | 2019-12-18 10:40 | NUR ---
ASSUMED CARE OF PATIENT THIS AM AT 0730. PATIENT IS ALERT AND ORIENTED X 4. SHE DENIES PAIN AND DISCOMFORT. PATIENT IS UP TO THE BR WITH ASSIST. TELE SHOWS SR WITH PACS. IN TO ROUND. DISCHARGE PLANNED FOR TODAY AFTER SEEING PT AND OT. NO FALLS OR INJURY.
[2019-12-18 11:50] VITALS: BP 161/79
--- NOTE | 2019-12-18 12:06 | NUR ---
Pt medically stable to dc today. CM updated Pt of Drs orders for HH, Pt in reluctantly in agreement. Faxed HH referral to [facility].
[2019-12-18 12:23] VITALS: BP 165/78
[2019-12-18] MEDS ORDERED: NORVASC 2.5 MG2.5 M1 PO (13:17)
[2019-12-18] MEDS ORDERED: FLECAINIDE ACET50 M2 PO (13:18)
[2019-12-18 13:21] VITALS: BP 161/79
== END 2019-12-18 16:30 | disposition home health service (06) | DRG 309 ==
LOC: M.ERS 16:57 → M.TBA-ER 18:29 → M.2W 21:51
PROVIDERS: Personal Emergency Response Attendant; ADMIT Internal Medicine; ATTEND Internal Medicine
DX: I48.0 Paroxysmal atrial fibrillation (principal); I50.32 Chronic diastolic (congestive) heart failure; I11.0 Hypertensive heart disease with heart failure; E11.9 Type 2 diabetes mellitus without complications; E78.00 Pure hypercholesterolemia, unspecified; E03.9 Hypothyroidism, unspecified; I95.9 Hypotension, unspecified; L40.9 Psoriasis, unspecified; Z85.828 Personal history of other malignant neoplasm of skin; Z79.899 Other long term (current) drug therapy; Z79.01 Long term (current) use of anticoagulants; Z88.6 Allergy status to analgesic agent; Z88.5 Allergy status to narcotic agent

== ENCOUNTER 2019-12-25 16:04 | Observation (INO) | payer MEDICARE ==
[~2019-12-25] VITALS: Ht 154.9 cm; Wt 56.7 kg
[~2019-12-25 16:04] MED LIST changes: +FLECAINIDE ACET50 M2 PO; +NORVASC 2.5 MG2.5 M1 PO
[2019-12-25 16:15] VITALS: BP 99/55
[2019-12-25 16:26] LABS: ABSOLUTE BASOPHILS 0.1 thou/uL (0.0-0.2); ABSOLUTE EOSINOPHILS 0.2 thou/uL (0.0-0.7); ABSOLUTE LYMPHOCYTES 1.6 thou/uL (0.8-5.3); ABSOLUTE MONOCYTES 0.5 thou/uL (0.0-1.2); ABSOLUTE NEUTROPHILS 3.8 thou/uL (1.6-8.1); BASOPHILS 1.3 %; EOSINOPHILS 2.7 %; HEMATOCRIT 38.4 % (37.0-47.0); LYMPHOCYTES 26.3 %; MCH 29.6 pg (26.0-34.0); MCHC 33.8 g/dL (28.0-37.0); MCV 87.3 fL (80.0-100.0); MONOCYTES 7.9 %; MPV 7.7 fl. (7.2-11.1); NUCLEATED RBCS 0 /100WBC; PLATELET COUNT* 332 thou/uL (150-400); POLYS 61.8 %; RDW-CV 13.5 % (10.5-14.5); WBC 6.1 thou/uL (4.0-11.0)
[2019-12-25 16:35] LABS: APTT 25.7 Seconds (25.0-31.3); INR 1.1; PROTIME 10.9 Seconds (9.20-11.50)
[2019-12-25 16:37] LABS: CALCIUM 8.8 mg/dL (8.5-10.1); CREATININE 1.5 mg/dL (0.6-1.3)
[2019-12-25 16:50] LABS: ALBUMIN 3.9 g/dL (3.4-5.0); CK-MB MASS 1.5 ng/mL (<0.5-3.6); MAGNESIUM 2.2 mg/dL (1.8-2.4); TOTAL BILIRUBIN 0.5 mg/dL (<0.1-1.0); TOTAL PROTEIN 7.5 g/dL (6.4-8.2)
[2019-12-25 20:45] VITALS: BP 92/56
[2019-12-25 20:55] VITALS: BP 88/52
[2019-12-26] VITALS: BP 120/71
[2019-12-26 08:00] VITALS: BP 138/69
--- NOTE | 2019-12-26 10:14 | EKG ---
[place] [address] ELECTROCARDIOGRAM REPORT Name: JANIE KNIGHT Room: [address]#: [id number] Admission: 12/25/19 Attend Phys: Vanessa Vazquez, Discharge: Date of : [birth year] Date of Service: 12/25/19 1611 Report #: [id number] THIS REPORT FOR: //name// [facility] ED Test Date: 2019-12-25 Test Time: 16:11:17 Pat Name: JANIE KNIGHT Department: Room: [facility] Gender: F Operator Vacuum: LONA : 1930 Requested By: Matt Ayers Order Number: [id number] MD: Jake Olsen Measurements Intervals [place] Rate: 155 P: ME: QRS: 25 QRSD: 79 T: 98 QT: 295 QTc: 474 Interpretive Statements Atrial fibrillation with rapid V-rate Repolarization abnormality, prob rate related Baseline wander in lead(s) V2 Compared to ECG 12/17/2019 08:23:46 Sinus rhythm no longer present Electronically Signed On 12-26-2019 10:13:44 CDT by Jake Olsen [email or web address] <ELECTRONICALLY SIGNED> By: Jake Olsen MD, [facility] 12/26/19 1013 1611 1611 Jake Olsen MD, FAC /EPI
[2019-12-26 12:00] VITALS: BP 135/72
--- NOTE | 2019-12-26 12:40 | EKG ---
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: : 1930 Requested By: Jeanne Monson Order Number: [id number] Rosa Isela MD: Jake Olsen Measurements Intervals [place] Rate: 59 P: 91 DE: 151 QRS: 25 QRSD: 92 T: 47 QT: 442 QTc: 438 Interpretive Statements Sinus rhythm Atrial premature complexes Borderline T wave abnormalities Compared to ECG 12/25/2019 16:11:17 Atrial fibrillation no longer present Electronically Signed On 12-26-2019 12:39:52 CDT by Jake Olsen [email or web address] <ELECTRONICALLY SIGNED> By: Jake Olsen MD, [facility] 12/26/19 1239 1113 1113 Jake Olsen MD, [facility] /EPI
--- NOTE | 2019-12-26 12:55 | NUR ---
CM spoke with Pt's son via phone. Pt known to this CM from previous hospital stays. 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 Spoke with cardiology nurse, Pt had not been taking her Eliqius at home, cardiology has provided samples, CM gave nurse a copay card to give to Pt at dc, SW to assist with Rx assistance program application. Per son, Pt did f/u with [facility], they referred Pt to [facility] for possible procedure/surgery, that appt is on February 06. Plan is home [place] with .
[2019-12-26 12:59] VITALS: BP 135/72
[2019-12-26] MEDS ORDERED: FLECAINIDE ACET50 M1 PO (13:18)
[2019-12-26] MEDS ORDERED: CARDIZEM CD120 MG PO (13:18)
[2019-12-26 13:42] VITALS: BP 135/72
--- NOTE | 2019-12-26 17:30 | NUR ---
ASSUMED PT CARE AT 0730. ASSESSMENT COMPLETED CHARTED. ABLE TO MAKE NEEDS KNOWN. UP WITH [facility]. NO C/O PAIN OR DISCOMFORT. VITAL SIGNS STABLE. DISCHARGE APPROVED AND WENT OVER WITH PT. GAVE [employer] SAVING CARD. PT LEFT AROUND 1625 IN WHEELCHAIR TO [employer] CAR WITH ALL BELONGINGS. IV AND HEART MONITOR REMOVED. NO COMMENTS, QUESTIONS OR CONCERNS NOTED FROM PT. PT'S SON CALLED ABOUT AN HOUR LATER WITH QUESTIONS ABOUT WHERE TO [facility] [employer]URITY CHECKER MEDICATIONS. PT SON AND PT NOTED UNDERSTANDING.
== END 2019-12-26 17:30 | disposition home health service (06) ==
LOC: M.ERS 16:04 → M.TBA-ER 17:22 → M.2W 20:07
PROVIDERS: Family Medicine; ADMIT Internal Medicine; ATTEND Internal Medicine
DX: I48.91 Unspecified atrial fibrillation (principal); E11.9 Type 2 diabetes mellitus without complications; I10 Essential (primary) hypertension; E03.9 Hypothyroidism, unspecified; E78.00 Pure hypercholesterolemia, unspecified